=== PATIENT | female | born 1955 | race Caucasian/White ===

== ENCOUNTER → 2018-09-26 | Day surgery (SDC) | payer OTHER ==
--- NOTE | 2018-09-27 13:30 | PATH ---
Cytology Non-Gynecological Report Patient Name: KI LORENZANA [facility]. Rec. #: [id number] /Age/Gender: 1955 (Age: 63) / F Account: [id number] Location: RADIOLOGY INTER Taken: 09/26/2018 Received: 09/26/2018 Reported: 09/27/2018 Physicians: Jann Arias M.D. Specimen(s) Received RIGHT THYROID FNA Clinical History Right thyroid nodule, 1.65 x 1.6 x 1.06 cm Final Diagnosis THYROID, RIGHT, FINE NEEDLE ASPIRATION: SATISFACTORY FOR EVALUATION. [place] CLASS II: BENIGN. CYTOLOGIC FINDINGS ARE CONSISTENT WITH A BENIGN FOLLICULAR NODULE. SMALL FOLLICULAR CELLS AND COLLOID PRESENT. Electronically Signed Helga Jeong M.D. Gross Description Received are eight direct smears, four of which are air-dried and Diff-Quik stained, and four of which are alcohol fixed and Pap stained. Also received is 20 ml of bloody formalin from which one cellblock is prepared.
== END | disposition home or self-care (01) ==
LOC: JRADIR 09:32
PROVIDERS: ATTEND Internal Medicine Endocrinology, Diabetes & Metabolism
PROC: 0G9G3ZX Drainage of Left Thyroid Gland Lobe, Percutaneous Approach, Diagnostic (ICD-10-PCS; principal; 2018-09-26)
DX: E04.1 Nontoxic single thyroid nodule (principal)
CPT/HCPCS: 76942; 88173; 88305-TC

== ENCOUNTER → 2022-04-20 | Day surgery (SDC) | payer OTHER | END | disposition home or self-care (01) | LOC: JRADIR 09:22 | PROVIDERS: ATTEND Orthopaedic Surgery | PROC: BP28YZZ Computerized Tomography (CT Scan) of Right Shoulder using Other Contrast (ICD-10-PCS; principal; 2022-04-20) | PROC: BP28YZZ Computerized Tomography (CT Scan) of Right Shoulder using Other Contrast (ICD-10-PCS; 2022-04-20) | DX: M25.511 Pain in right shoulder (principal) | CPT/HCPCS: 23350; 73040-TC-FY; 73200-TC-RT ==

== ENCOUNTER 2024-09-13 13:21 | Emergency (ER) | payer OTHER ==
[2024-09-13 13:28] VITALS: BP 104/51; PULSE 99; RESP 18; TEMP 98.6; BMI 49.7
[2024-09-13] MEDS ORDERED: LORATADINE 10 MG TABLET ONE (14:16)
[2024-09-13] MEDS ORDERED: FAMOTIDINE 20 MG TABLET ONE (14:16)
[2024-09-13] MEDS ORDERED: DEXAMETHASONE SOD PHOSPHATE 10 MG/1 ML VIAL ONE (14:17)
[2024-09-13] MEDS: LORATADINE 10 MG TABLET PO ONE (14:24)
[2024-09-13] MEDS: FAMOTIDINE 20 MG TABLET PO ONE (14:24)
[2024-09-13] MEDS: DEXAMETHASONE SOD PHOSPHATE 10 MG/1 ML VIAL IM ONE (14:24)
== END 2024-09-13 14:38 | disposition home or self-care (01) ==
LOC: JER 13:21
DX: L23.9 Allergic contact dermatitis, unspecified cause (principal); R21 Rash and other nonspecific skin eruption
CPT/HCPCS: 99283-25; J1100